=== PATIENT | male | born 1980 | race Caucasian/White ===

== ENCOUNTER 2016-10-31 16:21 | Emergency (ER) | payer MEDICAID ==
[2016-10-31] MEDS ORDERED: Sodium Chloride 0.9% 1000 ML 1,000 ML IV STA (16:44)
[2016-10-31] MEDS ORDERED: Sodium Chloride 0.9% 1000 ML 1,000 ML ONE (16:49)
--- NOTE | 2016-10-31 16:51 | ERPHSYRPT ---
- History of Present Illness Time Seen by Provider: 10/31/16 16:40 Source: patient Exam Limitations: no limitations Patient Subjective Stated Complaint: AT 3PM TODAY HAD NEAR SYNCOPAL EPISODE, DIZZINESS AND "FELT FUNNY ALL OVER". HX ANXIETY AND STATES HAS HAD A LOT OF STRESS LATELY. Triage Nursing Assessment: TO ROOM PER AMB COT. SKIN W/D, COLOR NORMAL, RESP EASY. DENIES ANY PAIN. 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 Physician History: 36-year-old white male brought by medics with complaint that he stood up had a sudden onset of sharp substernal chest pain felt weak in the legs states he passed out states she had had some anterior chest pain states he felt dizzy and felt funny all over. Denies shortness of breath no nausea no vomiting. Patient does state that he has been under a lot of stress lately states he hasn' t eaten for 3 days because he just hasn't felt like eating. Past medical history includes anxiety depression old chart shows arthritis ( patient denies this) Patient states he's had a back injury in the past. Past surgical history includes arthritis. Timing/Duration: today (3:00 this afternoon) Severity: moderate Modifying Factors: Improves With: nothing Associated Symptoms: chest pain (sharp anterior chest pain), malaise, syncope ( patientstates he had sharp anterior chest pain after standing up felt weak in the legs and passed out.), No nausea, No vomiting, No abdominal pain, No shortness of breath, No heartburn, No diaphoresis, No cough, No chills, No fever , No headaches, No loss of appetite, No rash Allergies/Adverse Reactions: aspirin Allergy (Verified 10/31/16 16:34) Home Medications: Fluoxetine HCl [Prozac] 20 mg PO HS 10/31/16 [History] Lorazepam 0.5 mg [Ativan 0.5 MG] 0.5 mg PO DAILY 10/31/16 [History] Hx Tetanus, Diphtheria Vaccination/Date Given: No Hx Influenza Vaccination/Date Given: No Hx Pneumococcal Vaccination/Date Given: No - Review of Systems Constitutional: No Fever, No Chills Eyes: No Symptoms Ears, Nose, & Throat: No Symptoms, No Ear Pain, No Ear Discharge, No Hearing Changes, No Tinnitus, No Nose Pain, No Nose Congestion, No Nose Discharge, No Sinus Drainage, No Epistaxis, No Mouth Pain, No Mouth Swelling, No Loose Teeth, No Throat Pain, No Throat Swelling, No Hoarse, No Painful Swallowing, No Snoring , No Stridor Respiratory: No Cough, No Dyspnea Cardiac: Chest Pain (sharp anterior chest pain at 3:00 with standing up), Syncope (past out after sharp chest pain and felt week in the legs), No Edema, No Palpitations Abdominal/Gastrointestinal: Appetite Changes (decreased appetite for several days), No Abdominal Pain, No Nausea, No Vomiting, No Diarrhea Genitourinary Symptoms: No Dysuria Musculoskeletal: No Back Pain, No Neck Pain Skin: No Rash Neurological: Other (felt weak in the legs after standingup and experiencing sharp chest pain) Psychological: No Symptoms, Anxiety Endocrine: No Symptoms All Other Systems: Reviewed and Negative - Past Medical History Pertinent Past Medical History: Yes Musculoskeletal History: Arthritis Psycho-Social History: Anxiety, Depression - Past Surgical History Past Surgical History: Yes Gastrointestinal: Appendectomy - Social History Smoking Status: Never smoker Exposure to second hand smoke: No Drug Use: none Patient Lives Alone: No - Nursing Vital Signs Nursing Vital Signs: Initial Vital Signs Temperature 98.7 F Temperature Source Oral Pulse Rate 86 Respiratory Rate 18 Blood Pressure [] 150/74 - Physical Exam General Appearance: anxiety, other (well-developed obese white male alert oriented 3) Eye Exam: PERRL/EOMI, eyes nml inspection Ears, Nose, Throat Exam: normal ENT inspection Neck Exam: normal inspection, non-tender, supple, full range of motion Respiratory Exam: normal breath sounds, lungs clear, No respiratory distress Cardiovascular Exam: regular rate/rhythm Gastrointestinal/Abdomen Exam: soft, normal bowel sounds, No tenderness, No mass Back Exam: normal inspection, normal range of motion, No CVA tenderness, No vertebral tenderness Extremity Exam: normal inspection, normal range of motion, pelvis stable Neurologic Exam: alert, oriented x 3, cooperative, normal mood/affect, nml cerebellar function, nml station & gait, sensation nml, No motor deficits Skin Exam: normal color, warm, dry, No rash Lymphatic Exam: No adenopathy SpO2 Interpretation: normal (95%) SpO2: 95 Oxygen Delivery: Room Air - Course Nursing assessment & vital signs reviewed: Yes EKG Interpreted by Me: RATE (106 bpm), NORMAL AXIS, Other (EKG sinus rhythm 10 6 bpm normal axis no acute ST or T wave changes noted) - Radiology Exams Chest X-ray Interpretation: Interpreted by me, Negative, No Pneumonia, No Pneumothorax , Other (no acute disease process noted) Ordered Tests: Active Orders 24 hr Category Date Time Status Atmospheric Technician STAT Care 10/31/16 16:44 Active EKG-ER Only STAT Care 10/31/16 16:44 Active IV Insertion STAT Care 10/31/16 16:44 Active CHEST 1 VIEW (PORTABLE) Stat Exams 10/31/16 16:45 Completed CBC W DIFF Stat Lab 10/31/16 16:58 Completed CMP Stat Lab 10/31/16 16:58 Completed D-DIMER QUANTITATION Stat Lab 10/31/16 16:58 Completed TROPONIN Q3H Lab 10/31/16 16:58 Completed TROPONIN Q3H Lab 10/31/16 19:45 Ordered TROPONIN Q3H Lab 10/31/16 22:45 Ordered TROPONIN Q3H Lab 11/01/16 01:45 Ordered TROPONIN Q3H Lab 11/01/16 04:45 Ordered Medication Summary Discontinued Medications Generic Name Dose Route Start Last Admin Trade Name Freq PRN Reason Stop Dose Admin Sodium Chloride 1,000 mls @ 999 mls/hr 10/31/16 16:44 10/31/16 16:51 Sodium Chloride 0.9% 1000 Ml IV 10/31/16 17:44 999 mls/hr .Q1H1M STA Administration Sodium Chloride Confirm 10/31/16 16:49 Sodium Chloride 0.9% 1000 Ml Administered 10/31/16 16:50 Dose 1,000 mls @ ud .ROUTE .STK-MED ONE Lab/Rad Data: Laboratory Result Diagrams 10/31/16 16:58 10/31/16 16:58 Laboratory Results 10/31/16 10/31/16 10/31/16 Range/Units 16:58 16:58 16:58 WBC (4.0-10.5) K/mm3 RBC (4.1-5.6) M/mm3 Hgb (12.5-18.0) gm/dl Hct (42-50) % MCV (78-100) fl MCH (26-32) pg MCHC (32-36) g/dl RDW (11.5-14.0) % Plt Count (150-450) K/mm3 MPV (6-9.5) fl Gran % (36.0-66.0) % Lymphocytes % (24.0-44.0) % Monocytes % (0.0-12.0) % Eosinophils % (0.00-5.0) % Basophils % (0.0-0.4) % Basophils # (0-0.4) D-Dimer 0.173 (0.00-0.49) mg/L Sodium 140 (136-145) mEq/L Potassium 3.6 (3.5-5.1) mEq/L Chloride 102 (98-107) mEq/L Carbon Dioxide 21.6 (21-32) mEq/L Anion Gap 20.3 H (5-15) MEQ/L BUN 11 (9-20) mg/dL Creatinine 0.98 (0.55-1.30) mg/dl Estimated GFR > 60 ML/MIN Glucose 94 (70-110) MG/DL Calcium 9.1 (8.5-10.1) mg/dL Total Bilirubin 0.8 (0.2-1.0) mg/dL AST 46 H (15-37) U/L ALT 108 H (12-78) U/L Alkaline Phosphatase 54 (46-116) U/L Troponin I < 0.017 (0.000-0.056) ng/ml Serum Total Protein 8.3 H (6.4-8.2) gm/dL Albumin 4.4 (3.4-5.0) g/dL 10/31/16 Range/Units 16:58 WBC 8.4 (4.0-10.5) K/mm3 RBC 5.23 (4.1-5.6) M/mm3 Hgb 16.0 (12.5-18.0) gm/dl Hct 46.7 (42-50) % MCV 89.3 (78-100) fl MCH 30.6 (26-32) pg MCHC 34.3 (32-36) g/dl RDW 13.1 (11.5-14.0) % Plt Count 274 (150-450) K/mm3 MPV 9.8 H (6-9.5) fl Gran % 69.4 H (36.0-66.0) % Lymphocytes % 22.3 L (24.0-44.0) % Monocytes % 7.7 (0.0-12.0) % Eosinophils % 0.5 (0.00-5.0) % Basophils % 0.1 (0.0-0.4) % Basophils # 0.01 (0-0.4) D-Dimer (0.00-0.49) mg/L Sodium (136-145) mEq/L Potassium (3.5-5.1) mEq/L Chloride (98-107) mEq/L Carbon Dioxide (21-32) mEq/L Anion Gap (5-15) MEQ/L BUN (9-20) mg/dL Creatinine (0.55-1.30) mg/dl Estimated GFR ML/MIN Glucose (70-110) MG/DL Calcium (8.5-10.1) mg/dL Total Bilirubin (0.2-1.0) mg/dL AST (15-37) U/L ALT (12-78) U/L Alkaline Phosphatase (46-116) U/L Troponin I (0.000-0.056) ng/ml Serum Total Protein (6.4-8.2) gm/dL Albumin (3.4-5.0) g/dL - Progress Progress: improved Progress Note: 10/31/16 18:39 36-year-old white male with sudden onset of sharp chest pain followed by weakness in his legs patient states he got up just prior to the episode of the pain His family states that if he passed out it was only for a second. Patient with a normal examination initially elevated blood pressure which has settled down patient seemed to be quite anxious over his episode. He is having no pain whatsoever at this time vitals are stable a d-dimer within normal limits chemistry normal CBC normal with the exception of a slightly elevated hemoglobin troponin is within normal limits chest x-ray is normal. Patient states he feels much better he did state he hasn't eaten for a few days he was given IV fluids I've offered to give him food however he does not want any. I've offered to the patient for him to stay and get repeat troponin he states he does not want to do this either. I have informed the patient that I cannot completely rule out cardiac etiology for his pain without seeing the second troponin he understands this and he states he will follow-up with his physician tomorrow. Will discharge patient have him drink plenty of fluids rest follow-up with his family physician tomorrow. He has been advised to return if any problems - Departure Time of Disposition: 18:42 Departure Disposition: Home Clinical Impression: Vasovagal syncope Chest pain Qualifiers: Chest pain type: unspecified Qualified Code(s): R07.9 - Chest pain, unspecified Condition: Fair Critical Care Time: No Additional Instructions: Return home. Plenty of fluids. Tylenol every 4 hours as needed for pain. Rest. Follow-up with your family doctor. Return for acute distress or for severe symptoms.
[2016-10-31 17:06] LABS: BASOPHIL % 0.1 % (0.0-0.4); Eosinophil % 0.5 % (0.00-5.0); Granulocytes % 69.4 % (36.0-66.0); Lymphocytes % 22.3 % (24.0-44.0); Mean Cell Volume 89.3 fl (78-100); Mean Corpuscular Hemoglobin 30.6 pg (26-32); Mean Platelet Volume 9.8 fl (6-9.5); Monocytes % 7.7 % (0.0-12.0); Platelet Count 274 K/mm3 (150-450); Red Blood Count 5.23 M/mm3 (4.1-5.6); Red Cell Distribution Width 13.1 % (11.5-14.0); White Blood Count 8.4 K/mm3 (4.0-10.5)
--- NOTE | 2016-10-31 17:06 | XRAY ---
Indication: Chest pain. Syncope. Comparison: None Portable apical lordotic chest demonstrates normal heart, lungs, and bony thorax.
[2016-10-31 17:26] LABS: ALBUMIN 4.4 g/dL (3.4-5.0); ALKALINE PHOSPHATASE 54 U/L (46-116); ANION GAP 20.3 MEQ/L (5-15); BILIRUBIN,TOTAL 0.8 mg/dL (0.2-1.0); BLOOD UREA NITROGEN 11 mg/dL (9-20); CHLORIDE 102 mEq/L (98-107); Carbon Dioxide 21.6 mEq/L (21-32); Glucose 94 MG/DL (70-110); Potassium 3.6 mEq/L (3.5-5.1); SGOT/AST 46 U/L (15-37); SGPT/ALT 108 U/L (12-78); SODIUM 140 mEq/L (136-145); Total Protein 8.3 gm/dL (6.4-8.2)
[2016-10-31 18:04] VITALS: BP 150/74; PULSE 86
[2016-10-31 18:14] VITALS: O2SAT 95
== END 2016-10-31 19:10 | disposition home or self-care (01) ==
LOC: ED 16:21
DX: R55 Syncope and collapse (principal); R07.9 Chest pain, unspecified; F41.8 Other specified anxiety disorders; R42 Dizziness and giddiness; M19.90 Unspecified osteoarthritis, unspecified site; Z79.899 Other long term (current) drug therapy
CPT/HCPCS: 36415; 71010; 80053; 84484; 85025; 85379; 93005; 93041; 96360; 99284